=== PATIENT | male | born 1985 | race Two or more races ===

== ENCOUNTER 2017-06-21 18:10 | Emergency (ER) | payer OTHER ==
[~2017-06-21] VITALS: Ht 167.6 cm; Wt 79.4 kg
[2017-06-21 21:08] VITALS: BP 155/89
== END 2017-06-21 22:01 ==
LOC: ER 18:17
DX: S80.11XA Contusion of right lower leg, initial encounter (principal); G43.909 Migraine, unspecified, not intractable, without status migrainosus; X58.XXXA Exposure to other specified factors, initial encounter; Y93.89 Activity, other specified; Y92.89 Other specified places as the place of occurrence of the external cause; Y99.8 Other external cause status